=== PATIENT | female | born 1960 | race Caucasian/White ===

== ENCOUNTER 2016-05-28 11:00 | Emergency (ER) | payer BC ==
[2016-05-28 13:53] LABS: APPEARANCE CLEAR (CLEAR); BILIRUBIN NEGATIVE (NEGATIVE); COLOR YELLOW (YELLOW); GLUCOSE NEGATIVE (NEGATIVE); KETONE NEGATIVE (NEGATIVE); LEUKOCYTE ESTERASE TRACE (NEGATIVE); NITRITE NEGATIVE (NEGATIVE); PROTEIN NEGATIVE (NEGATIVE); UROBILINOGEN NORMAL (NORMAL)
[2016-05-28 13:55] LABS: BACTERIA FEW /hpf (NONE SEEN); RED CELLS - URINE OCC /hpf (0-5); WHITE CELLS - URINE 0-5 /hpf (0-5)
== END 2016-05-28 13:58 | disposition home or self-care (01) ==
LOC: D.ER 11:00
PROVIDERS: Emergency Medicine
DX: M54.5 Low back pain (principal); F17.200 Nicotine dependence, unspecified, uncomplicated

== ENCOUNTER → 2017-09-23 09:10 | Outpatient (CLI) | payer BC ==
[~2017-09-23 09:10] MED LIST: ATIVAN0.5 MG PO; FUROSEMIDE20 MG PO; POTASSIUM99 M1 PO
[2017-10-21 11:16] VITALS: BMI 17.4
== END | disposition home or self-care (01) ==
LOC: D.US 09-21 09:30
DX: R18.8 Other ascites (principal); K76.6 Portal hypertension

== ENCOUNTER 2017-10-21 09:34 | Day surgery (SDC) | payer BC ==
[2017-09-23 10:48] LABS: BASOPHILS 0.9 % (0-2); EOSINOPHILS 3.7 % (0-7); HEMATOCRIT 40.6 % (36.0-48.0); HEMOGLOBIN 13.6 g/dL (12-16); IMMATURE GRANULOCYTES 0.2 % (0-5); LYMPHOCYTES 23.8 % (15-50); MCHC 33.5 g/dL (31.0-37.0); MCV 104.4 fL (80.0-100.0); MEAN PLATELET VOLUME 9.8 fL (7.4-10.4); NEUTROPHILS 62.4 % (40-80); PLATELET COUNT 130 10x3/uL (130-400); RBC 3.89 10x6/uL (4.00-5.40); RDW 14.7 % (11.5-14.5); WBC 6.5 10x3/uL (4.8-10.8)
[2017-09-23 10:49] LABS: INR 1.03 (0.85-1.17); PROTIME 13.1 SECONDS (11.6-15.0)
[2017-09-23 10:54] LABS: ALBUMIN 3.8 g/dL (3.4-5.0); BILIRUBIN - DIRECT 0.18 mg/dL (0.00-0.30); BILIRUBIN - INDIRECT 0.58 mg/dL (0.00-1.00); BILIRUBIN - TOTAL 0.76 mg/dL (0.2-1.3); PROTEIN - SERUM 8.1 g/dL (6.4-8.2)
[~2017-10-21] VITALS: Ht 167.6 cm; Wt 49.1 kg
--- NOTE | ~2017-10-21 | OP ---
PATIENT NAME: RAMAKRISHNA MATHEW MEDICAL RECORD: [id number] :56 LOCATION:D.OPS ADMISSION DATE: SURGEON: JAMES SILVA MD DATE OF OPERATION: 10/21/2017 PROCEDURE: EGD with biopsy. REFERRING PHYSICIAN: Carlos Alvarez MD (Bill) INDICATIONS: Ms. Mathew is a delightful 57-year-old woman with history of cirrhosis secondary to alcohol, who presents for outpatient surveillance EGD. PREMEDICATIONS: Total IV anesthesia (cirrhosis), propofol 270 mg. INSTRUMENT: Olympus video gastroscope. PROCEDURE AND FINDINGS: After receiving informed consent, Ms. Mathew's posterior pharynx was anesthetized with Cetacaine spray. She was placed in left lateral decubitus position and sedated as per anesthesia. After achieving an adequate level of sedation, gastroscope was introduced per orally and advanced to the duodenum without difficulty. The esophageal mucosa was without erythema, ulcers, strictures, or masses. No varices were seen in the esophagus. Small hiatal hernia was present. Gastric mucosa was notable for cprv-qc-qdqlnpls diffuse erythema, most pronounced in antrum, and antral biopsies were obtained to rule out Helicobacter pylori. There was a small 0.3- to 0.5-cm sessile polyp in the antrum, which was biopsied. There were prominent thickened folds in the cardia, fundus, stomach, and gastric body. The mucosa in the proximal stomach had reticulated pattern, consistent with gastropathy of portal hypertension. Pylorus was patent and competent. Duodenal mucosa was without erythema or ulcers, appeared normal to the second portion. Gastroscope was then withdrawn. Ms. Mathew tolerated the procedure well. No immediate complications. ASSESSMENT: 1. Small hiatal hernia. 2. Prominent gastric folds. Cannot exclude underlying early gastric varices. 4. Gastropathy of portal hypertension. 5. Gastritis. 6. Antral or gastric polyp. RECOMMENDATIONS: 1. Followup histopathology. 2. Discontinue alcohol. 3. Surveillance EGD in one year. TRANSINT:[id number] Voice Confirmation ID: [id number] DOCUMENT ID: [id number] JAMES SILVA MD at 1808 CC: CARLOS ALVAREZ MD [id number] DICTATION DATE: 10/21/17 1243 PHLEBOTOMIST SUPERVISOR/INSTRUCTOR: 10/21/17 1310 [facility] 10/21/17 [facility] [address] [facility] [place] [address]
[2017-10-21 10:25] LABS: HEMATOCRIT 39.7 % (36.0-48.0); HEMOGLOBIN 13.9 g/dL (12-16); MCH 35.5 pg (26.0-34.0); MCV 101.3 fL (80.0-100.0); MEAN PLATELET VOLUME 8.9 fL (7.4-10.4); RBC 3.92 10x6/uL (4.00-5.40); RDW 14.2 % (11.5-14.5); WBC 5.6 10x3/uL (4.8-10.8)
[2017-10-21] MEDS ORDERED: POTASSIUM99 M1 PO (10:58)
[2017-10-21] MEDS ORDERED: FUROSEMIDE20 MG PO (10:59)
[2017-10-21] MEDS ORDERED: ATIVAN0.5 MG PO (11:00)
[2017-10-21 11:16] VITALS: BP 135/84; Ht 167.6 cm; Wt 49.1 kg
== END 2017-10-21 13:42 | disposition home or self-care (01) ==
LOC: D.OPS 09:34
PROVIDERS: Anesthesiology; Internal Medicine Gastroenterology
DX: K76.6 Portal hypertension (principal); K70.30 Alcoholic cirrhosis of liver without ascites; K31.89 Other diseases of stomach and duodenum; K44.9 Diaphragmatic hernia without obstruction or gangrene; K29.70 Gastritis, unspecified, without bleeding; K31.7 Polyp of stomach and duodenum; Z01.812 Encounter for preprocedural laboratory examination

== ENCOUNTER 2018-01-11 09:46 | Day surgery (SDC) | payer BC ==
[~2018-01-11] VITALS: Ht 167.6 cm; Wt 77.3 kg
--- NOTE | ~2018-01-11 | OP ---
PATIENT NAME: RAMAKRISHNA MATHEW MEDICAL RECORD: [id number] :56 LOCATION:D.OPS ADMISSION DATE: SURGEON: JAMES SILVA MD DATE OF OPERATION: 01/11/2018 PROCEDURE: Colonoscopy with polypectomy. REFERRING PHYSICIAN: Samuel Alvarez MD (Bill) INDICATIONS: Ms. Mathew is a delightful 57-year-old woman with history of portal hypertension, ascites, and alcohol-related liver disease. She has a history of colon polyps. Last colonoscopy was with Dr. Gerard Castaneda on August 2014 showing a tubular adenomatous colon polyp. She has a family history of colon cancer including her father, brother, and maternal grandmother. She presents for outpatient colonoscopy. PREMEDICATIONS: Total IV anesthesia (propofol 390 mg). INSTRUMENT: Olympus video colonoscope, pediatric. PROCEDURE AND FINDINGS: After receiving informed consent, Ms. Mathew was placed in left lateral decubitus position and sedated as per anesthesia. After achieving an adequate level of sedation, digital rectal exam was performed that showed few external hemorrhoidal tags. No fissure or fistulas. Normal sphincter tone. No palpable rectal masses. Colonoscope was introduced per rectally and advanced to the cecum. The cecum, IC valve, and appendiceal orifice were identified. Adjacent to the appendiceal orifice was a 0.3-cm sessile polyp, removed with biopsy forcep technique. At the splenic flexure was a diminutive 0.25-cm sessile polyp, removed with hot biopsy forcep technique. Retroflexion in the rectum showed grade I internal hemorrhoid. A good prep was present. Ms. Mathew tolerated the procedure well. No complications. Withdrawal time was 6 minutes. ASSESSMENT: 1. Small splenic flexure polyp, status post polypectomy. 2. Small cecal polyp, status post polypectomy. 3. Grade I internal hemorrhoid. RECOMMENDATIONS: 1. Followup histopathology. 2. Avoid aspirin, nonsteroidal anti-inflammatory drugs, and HANSEN-2 inhibitors for 14 days postpolypectomy. 3. High-fiber diet. 4. Surveillance colonoscopy in 3 years. TRANSINT:[id number] Voice Confirmation ID: [id number] DOCUMENT ID: [id number] OPERATIVE REPORT [id number] RAMAKRISHNA MATHEW JAMES SILVA MD at 8832 CC: SAMUEL ALVAREZ MD [id number] DICTATION DATE: 01/11/18 1624 WARD MAID: 01/11/18 2318 [facility] 01/11/18 [place] [id number] [place] [address]
[2018-01-11 10:22] LABS: HEMATOCRIT 37.2 % (36.0-48.0); HEMOGLOBIN 13.1 g/dL (12-16); MCH 38.8 pg (26.0-34.0); MCHC 35.2 g/dL (31.0-37.0); MCV 110.1 fL (80.0-100.0); MEAN PLATELET VOLUME 8.9 fL (7.4-10.4); RBC 3.38 10x6/uL (4.00-5.40); RDW 15.2 % (11.5-14.5); WBC 9.3 10x3/uL (4.8-10.8)
[2018-01-11 12:32] VITALS: BP 128/87; Ht 167.6 cm; Wt 77.3 kg
== END 2018-01-11 17:08 | disposition home or self-care (01) ==
LOC: D.OPS 09:46
PROVIDERS: Anesthesiology
DX: D12.0 Benign neoplasm of cecum (principal); D12.3 Benign neoplasm of transverse colon; Z86.010 Personal history of colon polyps; K64.0 First degree hemorrhoids; K64.4 Residual hemorrhoidal skin tags; K76.6 Portal hypertension; K70.9 Alcoholic liver disease, unspecified; Z01.812 Encounter for preprocedural laboratory examination

== ENCOUNTER → 2018-09-07 08:30 | Outpatient (CLI) | payer BC ==
[2018-01-11 12:32] VITALS: BMI 27.5
== END | disposition home or self-care (01) ==
LOC: D.MAMMO 08:30
PROVIDERS: ATTEND Family Medicine
DX: Z12.31 Encounter for screening mammogram for malignant neoplasm of breast (principal)

== ENCOUNTER 2019-01-24 14:54 | Inpatient (IN) | payer MEDICAID ==
[~2019-01-24] VITALS: Ht 167.6 cm; Wt 49.2 kg
[2019-01-24] VITALS (8 sets, daily range): BP systolic 89–122; BP diastolic 20–88; Ht 167.6 cm; Wt 49.2 kg
--- NOTE | 2019-01-24 15:23 | NUR ---
POSION CONTROL CALLED; SPOKE WITH ALF. ORDERS TO MONITOR, PT KEEP AWAKE AND IVF, PT STILL LETHARGIC AFTER CHARCOAL CONSUMED BUT WILL WAKE UP AND TALK TO ONE WHEN STIMULATED. PT HAS BEEN ONE ON ONE SINCE ARRIVAL.
[2019-01-24 15:46] LABS: BASOPHILS 1.2 % (0-2); EOSINOPHILS 2.3 % (0-7); HEMATOCRIT 38.5 % (36.0-48.0); HEMOGLOBIN 12.7 g/dL (12-16); IMMATURE GRANULOCYTES 0.2 % (0-5); LYMPHOCYTES 39.6 % (15-50); MCH 33.4 pg (26.0-34.0); MCV 101.3 fL (80.0-100.0); MEAN PLATELET VOLUME 9.4 fL (7.4-10.4); MONOCYTES 7.6 % (2-11); NEUTROPHILS 49.1 % (40-80); PLATELET COUNT 178 10x3/uL (130-400); RDW 14.2 % (11.5-14.5); WBC 6.5 10x3/uL (4.8-10.8)
[2019-01-24 15:56] LABS: CALC OSMOLALITY 279 mosm/kg (275-300); CHLORIDE - SERUM 107 mmol/L (98-107); CREATININE - SERUM 0.8 mg/dL (0.6-1.3); GLUCOSE 93 mg/dL (74-106); POTASSIUM - SERUM 3.3 mmol/L (3.5-5.1); SODIUM 142 mmol/L (136-145); UREA NITROGEN 5 mg/dL (7-18); eGFR NON AFRICAN AMERICAN 77 mL/min (90-120)
[2019-01-24 16:02] LABS: ALBUMIN 3.4 g/dL (3.4-5.0); ALKALINE PHOSPHATASE 190 U/L (46-116); ALT (SGPT) 30 U/L (10-68); BILIRUBIN - TOTAL 0.37 mg/dL (0.2-1.3); MAGNESIUM - SERUM 1.9 mg/dL (1.8-2.4); PROTEIN - SERUM 7.4 g/dL (6.4-8.2)
--- NOTE | 2019-01-24 17:05 | MORECARE ---
CASE MANAGEMENT DISCHARGE SUMMARY PATIENT: RAMAKRISHNA MATHEW UNIT: [id number] ADM DATE: 01/24/19 AGE: 58 : 56 SEX: F ROOM/BED: D.2314 AUTHOR: LARISSA FLOWERS PHYSICIAN: REFERRING PHYSICIAN: CARLOS ALVAREZ MD DATE OF SERVICE: 01/24/19 Discharge Plan Patient Name: RAMAKRIHSNA MATHEW Facility: [facility]:[place] : 1960 Planned Disposition: Inpatient Psych Facility Anticipated Discharge Date: 01/25/19 Discharge Date: Expected LOS: 1 Initial Reviewer: [email or web address] Initial Review Date: 01/24/2019 Generated: 01/24/19 6:05 pm DCPIA - Discharge Planning Initial Assessment Updated by [email or web address]: Betty Bernal on 01/24/19 5:01 pm * Is the patient Alert and Oriented? Yes * PCP Dr. Alvarez * Pharmacy [facility] * Preadmission Environment Home Alone * ADLs Independent * Other Equipment foot brace - has foot drop. * List name and contact numbers for known caregivers / representatives who currently or will assist patient after discharge: Bridger torres - [phone] * Verbal permission to speak to the caregivers and representatives has been obtained from the patient. Yes * Community resources currently utilized None * Additional services required to return to the preadmission environment? Yes * Can the patient safely return to the preadmission environment? No * Has this patient been hospitalized within the prior 30 days at any hospital? No Patient Name: RAMAKRISHNA MATHEW Page [id number] at 1705 All edits/amendments must be made on the electronic document DICTATION DATE: 01/24/191704 MEDICAL VOUCHER CLERK: LEI 01/24/191704 RPT#: [id number] [place] DATE: STATUS: ADM IN [facility] [address] [place] [address] END OF REPORT
--- NOTE | 2019-01-24 17:15 | MORECARE ---
CASE MANAGEMENT DISCHARGE SUMMARY PATIENT: RAMAKRISHNA MATHEW UNIT: [id number] ADM DATE: 01/24/19 AGE: 58 : 56 SEX: F ROOM/BED: D.2314 AUTHOR: KRISTIE,DOC PHYSICIAN: REFERRING PHYSICIAN: CARLOS ALVAREZ MD DATE OF SERVICE: 01/24/19 Discharge Plan Patient Name: RAMAKRISHNA MATHEW Facility: [facility]:[place] : 1960 Planned Disposition: Inpatient Psych Facility Anticipated Discharge Date: 01/25/19 Discharge Date: Expected LOS: 1 Initial Reviewer: [email or web address] Initial Review Date: 01/24/2019 Generated: 01/24/19 6:14 pm DCP- Discharge Planning Updated by [email or web address]: Betty Bernal on 01/24/19 4:[address] DC PLAN: Inpatient psych facility. ANTICIPATED DC NEEDS: Psych placement for attempted SI. CM met with patient who was unable to answer questions r/t poor response. Patients son in room, Bridger Rodriguez who complete initial dc planning assessment. CM educated Bridger on the CM role and verbal consent given by him to complete assessment. CM verified patient's address, phone number, and emergency contact phone numbers. Patient lives at home alone. He was concerned about where his mother would go at dc. Cm assured him that since she attempted suicide she would be placed in a facility to help her. He stated he figured that but he wanted re-assurance. Informed him that patient's upper caser tomorrow will be Darcy. CM will continue to follow and will assist as needed with dc plans/needs. Betty Bernal RN, [facility] DCPIA - Discharge Planning Initial Assessment Updated by [email or web address]: Betty Bernal on 01/24/19 5:01 pm * Is the patient Alert and Oriented? Yes * PCP Dr. Alvarez * Pharmacy [facility] on [facility] * Preadmission Environment Home Alone * ADLs Independent * Other Equipment foot brace - has foot drop. * List name and contact numbers for known caregivers / representatives who currently or will assist patient after discharge: Bridger Rodriguez - son - [phone] * Verbal permission to speak to the caregivers and representatives has been obtained from the patient. Yes * Community resources currently utilized None * Additional services required to return to the preadmission environment? Yes * Can the patient safely return to the preadmission environment? No * Has this patient been hospitalized within the prior 30 days at any hospital? No Last DP export: 01/24/19 4:05 Patient Name: RAMAKRISHNA MATHEW Page [id number] at 1715 All edits/amendments must be made on the electronic document DICTATION DATE: 01/24/191713 HUMAN RESOURCES MGR: LEI 01/24/191713 RPT#: [id number] DC DATE: STATUS: ADM IN [facility] [address] [place] [address] END OF REPORT
--- NOTE | 2019-01-24 18:09 | NUR ---
PATIENT IS STILL TOO SEDATED TO DO SUICIDAL ASSESSMENT. ICU NURSE IS TRYING TO DO HER ASSESSMENT AND PATIENT IS VERY DROWSEY AND DOZING OFF TO SLEEP. WILL HAVE TO BE REASSESSED LATER.
--- NOTE | 2019-01-24 18:12 | NUR ---
NS STOPPED WITH PT TRANSFERED TO ICU 171
--- NOTE | 2019-01-24 18:20 | NUR ---
dr ramsay at bedside. patient admitted to taking 20 pills of ativan.
[2019-01-24] MEDS ORDERED: REMERON15 MG PO (18:24)
[2019-01-24] MEDS ORDERED: CYMBALTA60 MG PO (18:24)
[2019-01-24] MEDS ORDERED: NEURONTIN800 MG PO (18:25)
--- NOTE | 2019-01-24 19:00 | NUR ---
ASSESSMENT COMPLETED. HYPOTENSIVE AND LETHARGIC. WAKES TO STIMULI. DENIES ANY NEEDS AT THIS TIME. CALL LIGHT IN REACH. PATIENT HAS SITTER WITH HER. PATIENT IS ALSO CONFUSED.
--- NOTE | 2019-01-24 21:00 | NUR ---
LAYING IN BED, EASILY WAKES NOW TO NAME. C/O L KNEE PAIN AND WANTING NARCOTICS. PATIENT TRIED TO GET UP OOB WITHOUT ASSISTANCE. LEFT LEG WEAK. STATES SHE FELL AT HER SON'S HOUSE AT [facility] LAST MONTH. ATTEMPTED TO RE-ORIENT WITHOUT SUCCESS. PATIENT STATES SHE DOES NOT THINK SHE TRIED TO KILL HERSELF. PATIENT DRINKING LIQUIDS WITHOUT DIFFICULTY. CALL LIGHT IN REACH
--- NOTE | 2019-01-24 23:00 | NUR ---
RE-ASSESSMENT COMPLETED. NO CHANGES SINCE LAST ASSESSMENT. 3 EPISODES OF BLACK DIARRHEA. UNABLE TO OBTAIN URINE D/T ALSO HAS DIARRHEA EACH TIME IN BSC. PT IS ASKING FOR ASSISTANCE, NOT GETTING UP ON HER OWN ANYMORE. PATIENT IS REQUESTING MEDICINE TO HELP HER SLEEP AND STATES SHE HAS TO HAVE SOMETHING TO SLEEP. DENIES ANY PAIN TO L KNEE AT THIS TIME
[2019-01-25] VITALS (20 sets, daily range): BP systolic 114–184; BP diastolic 67–113
--- NOTE | 2019-01-25 01:00 | NUR ---
LAYING IN BED WITH EYES CLOSED, EASILY WAKES TO NAME. CALL LIGHT IN REACH. VSS. DENIES ANY PAIN OR NEEDS AT THIS TIME.
--- NOTE | 2019-01-25 03:00 | NUR ---
RE-ASSESSMENT COMPLETED. NO CHANGES SINCE LAST ASSESSMENT. VSS. CALL LIGHT IN REACH. 1:1 SITTER. ANOTHER LOOSE BM, INCONTINENT. COMPLETE BED CHANGE COMPLETED
--- NOTE | 2019-01-25 05:03 | NUR ---
EYES CLOSED, EASILY WAKES. VSS. CALL LIGHT IN REACH. 1:1 SITTER.
[2019-01-25 05:12] LABS: BASOPHILS 1.1 % (0-2); HEMOGLOBIN 11.1 g/dL (12-16); IMMATURE GRANULOCYTES 0.2 % (0-5); LYMPHOCYTES 35.8 % (15-50); MCH 32.7 pg (26.0-34.0); MCHC 31.7 g/dL (31.0-37.0); MCV 103.2 fL (80.0-100.0); MEAN PLATELET VOLUME 9.5 fL (7.4-10.4); MONOCYTES 13.5 % (2-11); NEUTROPHILS 45.4 % (40-80); PLATELET COUNT 168 10x3/uL (130-400); RBC 3.39 10x6/uL (4.00-5.40); RDW 14.6 % (11.5-14.5); WBC 6.3 10x3/uL (4.8-10.8)
[2019-01-25 05:38] LABS: ALBUMIN 2.9 g/dL (3.4-5.0); ALKALINE PHOSPHATASE 156 U/L (46-116); ALT (SGPT) 23 U/L (10-68); BILIRUBIN - TOTAL 0.38 mg/dL (0.2-1.3); CALC OSMOLALITY 287 mosm/kg (275-300); CALCIUM 7.7 mg/dL (8.5-10.1); CARBON DIOXIDE 24.4 mmol/L (21.0-32.0); CHLORIDE - SERUM 113 mmol/L (98-107); CREATININE - SERUM 0.6 mg/dL (0.6-1.3); GLUCOSE 97 mg/dL (74-106); POTASSIUM - SERUM 3.9 mmol/L (3.5-5.1); PROTEIN - SERUM 6.2 g/dL (6.4-8.2); SODIUM 146 mmol/L (136-145); UREA NITROGEN 4 mg/dL (7-18); eGFR NON AFRICAN AMERICAN > 90 mL/min (90-120)
--- NOTE | 2019-01-25 07:00 | NUR ---
REPORT RECIEVED, SHIFT ASSESSMENT COMPLETE, PT IS ALERT AND ORIENTED, ON RA WITH 97% O2 SAT. ALL PPP, VSS, CALL LIGHT IN REACH
--- NOTE | 2019-01-25 09:00 | NUR ---
UPTO BSC, 400 UOP NOTED
--- NOTE | 2019-01-25 09:11 | HP ---
PATIENT: RAMAKRISHNA MATHEW MEDICAL RECORD: [id number] ACCOUNT: [id number] LOCATION:[facility] D2312 : 56 ADMISSION DATE: 01/24/19 PCP: CARLOS ALVAREZ MD HISTORY AND PHYSICAL EXAMINATION DATE OF ADMISSION: 01/24/2019 CHIEF COMPLAINT: Ativan overdose. HISTORY OF PRESENT ILLNESS: A 58-year-old female brought in via EMS reportedly took approximately 30 lorazepam 0.5 mg in an attempt to kill herself. In the ER, it was reported that she wanted to end her life. When I talked to her in the ICU, I asked her if she wanted to end her life and she said "call for help." She is admitted to the ICU for close monitoring for intentional benzodiazepine overdose. PAST MEDICAL AND SURGICAL HISTORY: In the last few months, she presented to my office, admittedly depressed and drinking too much. She spent time in [facility] in either late October or early November and was reportedly diagnosed with post-traumatic stress disorder and depression. She has been going to [facility] in [facility]. Since being discharged from [facility], she was reportedly on duloxetine, mirtazapine, gabapentin, Lasix, and potassium. She has been on lorazepam prior to the hospitalization; however, she still had a refill left of lorazepam 0.5, #60, to take twice a day. She got that filled on 12/12/2018. She also has a past history of hypertension, high cholesterol, and dropped foot. PAST SURGICAL HISTORY: Laparoscopic cholecystectomy. ALLERGIES: No known drug allergies. HABITS: She smokes. She has continued to drink. Denies any drug use. HOME MEDICATIONS: Duloxetine 60 mg every morning, mirtazapine 15 mg at bedtime, gabapentin 800 mg t.i.d., multivitamin once a day, Lasix 20 mg once a day p.r.n. edema and K-Dur 20 mEq 1 p.o. every day on days she takes Lasix. FAMILY HISTORY: Noncontributory. SOCIAL HISTORY: , has been working at [employer], I am not sure if she is still there or not. REVIEW OF SYSTEMS: GENERAL: No major weight changes. HEENT: No particular sinus or allergy problems. RESPIRATORY: No history of asthma or emphysema. CARDIAC: No history of chest pain. GASTROINTESTINAL: No diarrhea, constipation, or heartburn. GENITOURINARY: No significant problems there. MUSCULOSKELETAL: No significant problems. NEUROLOGICAL: She has footdrop. PSYCHIATRIC: Posttraumatic stress disorder and depression. PHYSICAL EXAMINATION: VITAL SIGNS: Temperature 98.8, pulse 97, respirations 12, blood pressure HISTORY AND PHYSICAL [id number] RAMAKRISHNA MATHEW 104/70, O2 sat 100%. GENERAL: She is easily awakened. She is confused. HEENT: Unremarkable. NECK: Supple. HEART: Regular rate and rhythm without murmur. LUNGS: Clear. ABDOMEN: Soft. EXTREMITIES: No edema. NEUROLOGIC: Again, she seems confused, this could be the alcohol or lorazepam. LABORATORY DATA: CBC is normal. Basic metabolic panel is okay except potassium a little low at 3.3, magnesium 1.9, alkaline phosphatase 190. Other liver functions are normal. Acetaminophen level 0.0. Alcohol level 231 (normal is less than 10). ASSESSMENT: 1. Lorazepam overdose. 2. Alcohol abuse. PLAN: Close monitoring in the ICU, consult psych in the morning. Other tests and procedures as warranted. TRANSINT:[id number] Voice Confirmation ID: [id number] DOCUMENT ID: [id number] CARLOS ALVAREZ MD at 0911 CC: [id number] DICTATION DATE: 01/25/19 0059 GROUNDSKEEPING MAINTENANCE WORKER: 01/25/19 0148 ADM IN [facility] [address] [place] [address]
--- NOTE | 2019-01-25 11:00 | NUR ---
REASSESSMENT COMPLETE, NO CHANGES NOTED, WILL CON'T TO MONITOR
--- NOTE | 2019-01-25 13:15 | NUR ---
UPTO BSC, 250 UOP
--- NOTE | 2019-01-25 15:00 | NUR ---
PT RESTING AT THIS TIME, DENIES ANY NEEDS OR WANTS, VSS, CALL LIGHT IN REACH
--- NOTE | 2019-01-25 16:00 | NUR ---
DR. LEDBETTER AT BEDSIDE, UPDATE GIVEN, SPOKE AT LENGTH WITH PT AT THIS TIME
--- NOTE | 2019-01-25 16:27 | NUR ---
UPDATE GIVEN TO SON OVER PHONE,
--- NOTE | 2019-01-25 16:54 | NUR ---
PATIENT DENIES ANY THOUGHTS OF SUICIDE SINCE LADT ASKED. HER SCREENING IS COMPLETED. CONTINUE TO HAVE A SITTER AT BEDSIDE TO MONITOR HER.
--- NOTE | 2019-01-25 17:59 | MORECARE ---
CASE MANAGEMENT DISCHARGE SUMMARY PATIENT: RAMAKRISHNA MATHEW UNIT: [id number] ADM DATE: 01/24/19 AGE: 58 : 56 SEX: F ROOM/BED: D.2312 AUTHOR: KRISTIE,DOC PHYSICIAN: REFERRING PHYSICIAN: CARLOS ALVAREZ MD DATE OF SERVICE: 01/25/19 Discharge Plan Patient Name: RAMAKRISHNA MATHEW Facility: [facility]:[place] : 1960 Planned Disposition: Inpatient Psych Facility Anticipated Discharge Date: 01/25/19 Discharge Date: Expected LOS: 1 Initial Reviewer: [email or web address] Initial Review Date: 01/24/2019 Generated: 01/25/19 6:59 pm DCP- Discharge Planning Updated by [email or web address]: Betty Bernal on 01/24/19 4:[address] DC PLAN: Inpatient psych facility. ANTICIPATED DC NEEDS: Psych placement for attempted SI. CM met with patient who was unable to answer questions r/t poor response. Patients son in room, Bridger Rodriguez who complete initial dc planning assessment. CM educated Bridger on the CM role and verbal consent given by him to complete assessment. CM verified patient's address, phone number, and emergency contact phone numbers. Patient lives at home alone. He was concerned about where his mother would go at dc. Cm assured him that since she attempted suicide she would be placed in a facility to help her. He stated he figured that but he wanted re-assurance. Informed him that patient's nurse case manager tomorrow will be Darcy. CM will continue to follow and will assist as needed with dc plans/needs. Betty Bernal RN, [facility] DCPIA - Discharge Planning Initial Assessment Updated by [email or web address]: Betty Bernal on 01/24/19 5:01 pm * Is the patient Alert and Oriented? Yes * PCP Dr. Alvarez * Pharmacy [facility] on [facility] * Preadmission Environment Home Alone * ADLs Independent * Other Equipment foot brace - has foot drop. * List name and contact numbers for known caregivers / representatives who currently or will assist patient after discharge: Bridger Rodriguez - son - [phone] * Verbal permission to speak to the caregivers and representatives has been obtained from the patient. Yes * Community resources currently utilized None * Additional services required to return to the preadmission environment? Yes * Can the patient safely return to the preadmission environment? No * Has this patient been hospitalized within the prior 30 days at any hospital? No External Providers External Provider: [facility] Next Contact Date: Service Request Date: Service Type: Resolution: Reviewer: Comments: Last DP export: 01/24/19 4:15 Patient Name: RAMAKRISHNA MATHEW Page [phone] at 1759 All edits/amendments must be made on the electronic document DICTATION DATE: 01/25/191758 SKIAGRAPHER: LEI 01/25/191758 RPT#: [id number] [place] DATE: STATUS: ADM IN [facility] [address] [place] [address] END OF REPORT
--- NOTE | 2019-01-25 18:22 | NUR ---
CONSULT CALLED TO DR. CARDOZA, NO NEW ORDERS GIVEN
--- NOTE | 2019-01-25 19:00 | NUR ---
ASSESSMENT COMPLETED. BP 184/113 THEN AFTER A FEW MINUTES RECHECKED AND WAS 177/108. PAGED DR. ALVAREZ. C/O RINGING IN THE EARS. CONT WITH 1:1 SITTER
--- NOTE | 2019-01-25 20:00 | NUR ---
NEW ORDER FROM DR. ALVAREZ FOR CLONIDINE 0.1MG NOW AND THEN Q 6 HOURS PRN SBP >160 AND START NORVASC 5 MG Q DAY IN THE MORNING. READ BACK AND VERIFIED.
--- NOTE | 2019-01-25 21:00 | NUR ---
BP STARTING TO COME DOWN. DENIES ANY NEEDS. VSS
--- NOTE | 2019-01-25 21:08 | MORECARE ---
CASE MANAGEMENT DISCHARGE SUMMARY PATIENT: RAMAKRISHNA MATHEW UNIT: [id number] ADM DATE: 01/24/19 AGE: 58 : 56 SEX: F ROOM/BED: D.2312 AUTHOR: KRISTIE,DOC PHYSICIAN: REFERRING PHYSICIAN: CARLOS ALVAREZ MD DATE OF SERVICE: 01/25/19 Discharge Plan Patient Name: RAMAKRISHNA MATHEW Facility: [facility]:[place] : 1960 Planned Disposition: Inpatient Psych Facility Anticipated Discharge Date: 01/25/19 Discharge Date: Expected LOS: 1 Initial Reviewer: [email or web address] Initial Review Date: 01/24/2019 Generated: 01/25/19 10:08 pm Comments DCP- Discharge Planning Updated by [email or web address]: Darcy Talbert on 01/25/19 8:[address] CM called transfer center and faxed records for psychiatric placement. Awaiting for placement. CM will continue to follow and assist as needed with discharge planning / needs DCP- Discharge Planning Updated by [email or web address]: Betty Bernal on 01/24/19 4:[address] DC PLAN: Inpatient psych facility. ANTICIPATED DC NEEDS: Psych placement for attempted SI. CM met with patient who was unable to answer questions r/t poor response. Patients son in room, Bridger Rodriguez who complete initial dc planning assessment. CM educated Bridger on the CM role and verbal consent given by him to complete assessment. CM verified patient's address, phone number, and emergency contact phone numbers. Patient lives at home alone. He was concerned about where his mother would go at dc. Cm assured him that since she attempted suicide she would be placed in a facility to help her. He stated he figured that but he wanted re-assurance. Informed him that patient's window caser tomorrow will be Darcy. CM will continue to follow and will assist as needed with dc plans/needs. Betty Bernal RN, [facility] DCPIA - Discharge Planning Initial Assessment Updated by [email or web address]: Betty Bernal on 01/24/19 5:01 pm * Is the patient Alert and Oriented? Yes * PCP Dr. Alvarez * [facility] * Preadmission Environment Home Alone * ADLs Independent * Other Equipment foot brace - has foot drop. * List name and contact numbers for known caregivers / representatives who currently or will assist patient after discharge: Bridger torres - [phone] * Verbal permission to speak to the caregivers and representatives has been obtained from the patient. Yes * Community resources currently utilized None * Additional services required to return to the preadmission environment? Yes * Can the patient safely return to the preadmission environment? No * Has this patient been hospitalized within the prior 30 days at any hospital? No Last DP export: 01/25/19 4:59 Patient Name: RAMAKRISHNA MATHEW Page [phone] at 2108 All edits/amendments must be made on the electronic document DICTATION DATE: 01/25/192107 HEMMER CHAINSTITCH: LEI 01/25/192107 RPT#: [id number] DC DATE: STATUS: ADM IN [facility] [address] [place] [address] END OF REPORT
--- NOTE | 2019-01-25 23:00 | NUR ---
RE-ASSESSMENT COMPLETED. NO CHANGES SINCE LAST ASSESSMENT
[2019-01-26] VITALS (9 sets, daily range): BP systolic 123–166; BP diastolic 79–110
--- NOTE | 2019-01-26 | NUR ---
JUVENTINO WITH [facility] CALLED FOR H&P, FAXED COPY AND SHE CALLED BACK AND SAID THEIR DOCTOR DENIED HER D/T DUAL DX. STATES THAT THEIR DOCTOR RECOMMENDS TO GO BACK TO [facility] SINCE SHE HAS BEEN THERE BEFORE.
--- NOTE | 2019-01-26 01:00 | NUR ---
COLLECTED UA AND UDS, SENT TO LAB. BP COMING DOWN. DENIES ANY NEEDS
[2019-01-26 01:19] LABS: APPEARANCE CLEAR (CLEAR); BILIRUBIN NEGATIVE (NEGATIVE); COLOR YELLOW (YELLOW); GLUCOSE NEGATIVE (NEGATIVE); KETONE NEGATIVE (NEGATIVE); NITRITE NEGATIVE (NEGATIVE); PROTEIN NEGATIVE (NEGATIVE); UROBILINOGEN NORMAL (NORMAL)
[2019-01-26 01:27] LABS: UDS - AMPHET NEGATIVE QUAL (NEGATIVE); UDS - BARB NEGATIVE QUAL (NEGATIVE); UDS - BENZO NEGATIVE QUAL (NEGATIVE); UDS - COCAINE NEGATIVE QUAL (NEGATIVE); UDS - OPIATE NEGATIVE QUAL (NEGATIVE); UDS - PCP NEGATIVE QUAL (NEGATIVE); UDS - THC NEGATIVE QUAL (NEGATIVE)
--- NOTE | 2019-01-26 02:37 | NUR ---
SBP STILL ELEVATED- 166/110. GIVEN ANOTHER CLONIDINE PER ORDERS
--- NOTE | 2019-01-26 03:44 | NUR ---
BP AT THIS TIME 135/85. APPROX 1 HOUR AFTER CLONIDINE
--- NOTE | 2019-01-26 05:00 | NUR ---
VSS. LAYING IN BED, EASILY WAKES. 1:1 SITTER
--- NOTE | 2019-01-26 07:17 | NUR ---
REPORT RECIEVED, SHIFT ASSESSMENT COMPLETE, PT IS ALERT AND ORIENTED, ON RA WITH 97% O2 SAT. ALL PPP, VSS, CALL LIGHT IN REACH
--- NOTE | 2019-01-26 09:00 | NUR ---
PT RESTING AT THIS TIME, NO NEEDS NOTED, WILL CON'T TO MONITOR
--- NOTE | 2019-01-26 11:00 | NUR ---
PT AWAKE WATCHING TV AT THIS TIME, DENIES ANY NEEDS OR WANTS
--- NOTE | 2019-01-26 13:00 | NUR ---
PT LYING AWAKE IN BED, NO NEEDS NOTED
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
--- NOTE | 2019-01-26 14:37 | MORECARE ---
CASE MANAGEMENT DISCHARGE SUMMARY PATIENT: RAMAKRISHNA MATHEW UNIT: [id number] ADM DATE: 01/24/19 AGE: 58 : 56 SEX: F ROOM/BED: D.2312 AUTHOR: KRISTIE,DOC PHYSICIAN: REFERRING PHYSICIAN: CARLOS ALVAREZ MD DATE OF SERVICE: 01/26/19 Discharge Plan Patient Name: RAMAKRISHNA MATHEW Facility: [facility]:[place] : 1960 Planned Disposition: Inpatient Psych Facility Anticipated Discharge Date: 01/25/19 Discharge Date: Expected LOS: 1 Initial Reviewer: [email or web address] Initial Review Date: 01/24/2019 Generated: 01/26/19 3:37 pm Comments DCP- Discharge Planning Updated by [email or web address]: Darcy Talbert on 01/25/19 8:[address] CM called transfer center and faxed records for psychiatric placement. Awaiting for placement. CM will continue to follow and assist as needed with discharge planning / needs DCP- Discharge Planning Updated by [email or web address]: Betty Bernal on 01/24/19 4:[address] DC PLAN: Inpatient psych facility. ANTICIPATED DC NEEDS: Psych placement for attempted SI. CM met with patient who was unable to answer questions r/t poor response. Patients son in room, Bridger Rodriguez who complete initial dc planning assessment. CM educated Bridger on the CM role and verbal consent given by him to complete assessment. CM verified patient's address, phone number, and emergency contact phone numbers. Patient lives at home alone. He was concerned about where his mother would go at dc. Cm assured him that since she attempted suicide she would be placed in a facility to help her. He stated he figured that but he wanted re-assurance. Informed him that patient's rn field case manager tomorrow will be Darcy. CM will continue to follow and will assist as needed with dc plans/needs. Betty Bernal RN, [facility] DCPIA - Discharge Planning Initial Assessment Updated by [email or web address]: Betty Bernal on 01/24/19 5:01 pm * Is the patient Alert and Oriented? Yes * PCP Dr. Alvarez * Pharmacy [facility] [address] * Preadmission Environment Home Alone * ADLs Independent * Other Equipment foot brace - has foot drop. * List name and contact numbers for known caregivers / representatives who currently or will assist patient after discharge: Bridger torres - [phone] * Verbal permission to speak to the caregivers and representatives has been obtained from the patient. Yes * Community resources currently utilized None * Additional services required to return to the preadmission environment? Yes * Can the patient safely return to the preadmission environment? No * Has this patient been hospitalized within the prior 30 days at any hospital? No External Providers External Provider: OTHER-OTHER Next Contact Date: Service Request Date: Service Type: Resolution: Reviewer: Comments: Last DP export: 01/25/19 8:08 Patient Name: RAMAKRISHNA MATHEW Page [phone] at 1437 All edits/amendments must be made on the electronic document DICTATION DATE: 01/26/191436 CONVERSION DEVELOPER: LEI 01/26/191436 RPT#: [id number] ME DATE: STATUS: ADM IN [facility] [address] [place] [address] END OF REPORT
--- NOTE | 2019-01-26 15:00 | NUR ---
SITTER AT BEDSIDE, NO NEEDS NOTED, WILL CON'T TO MONITOR
--- NOTE | 2019-01-26 17:15 | NUR ---
UPTO BSC, UOP NOTED
--- NOTE | 2019-01-26 19:30 | NUR ---
PT A/OX4, LUNGS CLEAR, KNEE IMMOBILIZER PLACED TO LEFT LEG, PT WATCHING TV WITH NO C/O, WILL CONT TO MONITOR
--- NOTE | 2019-01-26 19:50 | MORECARE ---
CASE MANAGEMENT DISCHARGE SUMMARY PATIENT: RAMAKRISHNA MATHEW UNIT: [id number] ADM DATE: 01/24/19 AGE: 58 : 56 SEX: F ROOM/BED: D.2312 AUTHOR: KRISTIE,DOC PHYSICIAN: REFERRING PHYSICIAN: CARLOS ALVAREZ MD DATE OF SERVICE: 01/26/19 Discharge Plan Patient Name: RAMAKRISHNA MATHEW Facility: [facility]:[place] : 1960 Planned Disposition: Inpatient Psych Facility Anticipated Discharge Date: 01/25/19 Discharge Date: Expected LOS: 1 Initial Reviewer: [email or web address] Initial Review Date: 01/24/2019 Generated: 01/26/19 8:50 pm Comments DCP- Discharge Planning Updated by [email or web address]: Darcy Talbert on 01/26/19 6:[address] CM contacted transfer center. Patient has been denied from several facilities some are d/t no insurance and with Medicaid pending. CM contacted [facility] requesting assistance in placement. CM spoke with [facility] [phone] fax [phone]. and faxed records to transfer center updated labs and urine. CM explained to transfer center and nursing staff that [facility] had approved 3 days inpatient psych. on indigent care contract and for accepting facility to contact [facility] [phone]. CM will continue to follow and assist as needed with discharge planning / needs. DCP- Discharge Planning Updated by [id number]: Darcy Talbert on 01/25/19 8:[address] CM called transfer center and faxed records for psychiatric placement. Awaiting for placement. CM will continue to follow and assist as needed with discharge planning / needs DCP- Discharge Planning Updated by [email or web address]: Betty Bernal on 01/24/19 4:[address] DC PLAN: Inpatient psych facility. ANTICIPATED DC NEEDS: Psych placement for attempted SI. CM met with patient who was unable to answer questions r/t poor response. Patients son in room, Bridger Rodriguez who complete initial dc planning assessment. CM educated Bridger on the CM role and verbal consent given by him to complete assessment. CM verified patient's address, phone number, and emergency contact phone numbers. Patient lives at home alone. He was concerned about where his mother would go at de. Cm assured him that since she attempted suicide she would be placed in a facility to help her. He stated he figured that but he wanted re-assurance. Informed him that patient's correctional case manager tomorrow will be Darcy. CM will continue to follow and will assist as needed with dc plans/needs. Betty Bernal RN, [facility] DCPIA - Discharge Planning Initial Assessment Updated by [email or web address]: Betty Bernal on 01/24/19 5:01 pm * Is the patient Alert and Oriented? Yes * PCP Dr. Alvarez * Pharmacy [facility] on [address] * Preadmission Environment Home Alone * ADLs Independent * Other Equipment foot brace - has foot drop. * List name and contact numbers for known caregivers / representatives who currently or will assist patient after discharge: Bridger torres - [phone] * Verbal permission to speak to the caregivers and representatives has been obtained from the patient. Yes * Community resources currently utilized None * Additional services required to return to the preadmission environment? Yes * Can the patient safely return to the preadmission environment? No * Has this patient been hospitalized within the prior 30 days at any hospital? No Last DP export: 01/26/19 1:37 Patient Name: RAMAKRISHNA MATHEW Page [phone] at 1950 All edits/amendments must be made on the electronic document DICTATION DATE: 01/26/191949 [employer]: LEI 01/26/191949 RPT#: [id number] DC DATE: STATUS: ADM IN [facility] [address] [place] [address] END OF REPORT
--- NOTE | 2019-01-26 21:00 | NUR ---
PT REMAINS AWAKE, WATCHING TV WITH NO C/O, SITTER PRESENT
--- NOTE | 2019-01-26 23:09 | NUR ---
PT AWAKE, TALKING WITH SITTER, NO CHANGES NOTED
[2019-01-27] VITALS: BP 127/83
--- NOTE | 2019-01-27 01:00 | NUR ---
PT RESTING QUIETLY WITH EYES CLOSED
--- NOTE | 2019-01-27 02:30 | NUR ---
PT SIGNED CONSENT FOR TRANSFER, NOTIFIED PT SON OF TRANSFER SOON AMBULANCE IS AVAILABLE
--- NOTE | 2019-01-27 03:17 | NUR ---
PT DISCHARGED VIA STRETCHER TO EMS FOR TRANSPORT TO [facility]
--- NOTE | 2019-01-27 15:58 | MORECARE ---
CASE MANAGEMENT DISCHARGE SUMMARY PATIENT: RAMAKRISHNA MATHEW UNIT: [id number] ADM DATE: 01/24/19 AGE: 58 : 56 SEX: F ROOM/BED: D.2312 AUTHOR: KRISTIE,DOC PHYSICIAN: REFERRING PHYSICIAN: CARLOS ALVAREZ MD DATE OF SERVICE: 01/27/19 Discharge Plan Patient Name: RAMAKRISHNA MATHEW Facility: [facility]:[place] : 1960 Planned Disposition: Inpatient Psych Facility Anticipated Discharge Date: 01/25/19 Discharge Date: 01/27/2019 Expected LOS: 1 Initial Reviewer: [email or web address] Initial Review Date: 01/24/2019 Generated: 01/27/19 4:58 pm Comments DCP- Discharge Planning Updated by [email or web address]: Darcy Talbert on 01/26/19 6:[address] CM contacted transfer center. Patient has been denied from several facilities some are d/t no insurance and with Medicaid pending. CM contacted [facility] requesting assistance in placement. CM spoke with [facility] [phone] fax [phone]. and faxed records to transfer center updated labs and urine. CM explained to transfer center and nursing staff that [facility] had approved 3 days inpatient psych. on indigent care contract and for accepting facility to contact [facility] [phone]. CM will continue to follow and assist as needed with discharge planning / needs. DCP- Discharge Planning Updated by [email or web address]: Darcy Talbert on 01/25/19 8:[address] CM called transfer center and faxed records for psychiatric placement. Awaiting for placement. CM will continue to follow and assist as needed with discharge planning / needs DCP- Discharge Planning Updated by [email or web address]: Betty Bernal on 01/24/19 4:[address] DC PLAN: Inpatient psych facility. ANTICIPATED DC NEEDS: Psych placement for attempted SI. CM met with patient who was unable to answer questions r/t poor response. Patients son in room, Bridger Rodriguez who complete initial dc planning assessment. CM educated Bridger on the CM role and verbal consent given by him to complete assessment. CM verified patient's address, phone number, and emergency contact phone numbers. Patient lives at home alone. He was concerned about where his mother would go at [place]. Cm assured him that since she attempted suicide she would be placed in a facility to help her. He stated he figured that but he wanted re-assurance. Informed him that patient's foster care case manager tomorrow will be Darcy. CM will continue to follow and will assist as needed with dc plans/needs. Betty Bernal RN, [facility] DCPIA - Discharge Planning Initial Assessment Updated by [email or web address]: Betty Bernal on 01/24/19 5:01 pm * Is the patient Alert and Oriented? Yes * PCP Dr. Alvarez * Pharmacy [facility] on [address] * Preadmission Environment Home Alone * ADLs Independent * Other Equipment foot brace - has foot drop. * List name and contact numbers for known caregivers / representatives who currently or will assist patient after discharge: Bridger torres - [phone] * Verbal permission to speak to the caregivers and representatives has been obtained from the patient. Yes * Community resources currently utilized None * Additional services required to return to the preadmission environment? Yes * Can the patient safely return to the preadmission environment? No * Has this patient been hospitalized within the prior 30 days at any hospital? No Last DP export: 01/26/19 6:50 Patient Name: RAMAKRISHNA MATHEW Page [phone] at 1558 All edits/amendments must be made on the electronic document DICTATION DATE: 01/27/191557 ROLLER REPAIRER: LEI 01/27/191557 RPT#: [id number] DC DATE:01/27/19 STATUS: DIS IN [facility] [address] [place] [address] END OF REPORT
== END 2019-01-27 03:17 | DRG 918 ==
LOC: D.ER 14:54 → D.ICU 15:38
PROVIDERS: Family Medicine; ADMIT Family Medicine; ATTEND Family Medicine
DX: T42.4X2A Poisoning by benzodiazepines, intentional self-harm, initial encounter (principal); F33.2 Major depressive disorder, recurrent severe without psychotic features; F10.10 Alcohol abuse, uncomplicated; M25.562 Pain in left knee; W10.9XXA Fall (on) (from) unspecified stairs and steps, initial encounter

== ENCOUNTER → 2019-03-07 11:23 | Outpatient (CLI) | payer MEDICAID ==
[2019-01-24 17:37] VITALS: BMI 18.6
[~2019-03-07 11:23] MED LIST changes: +CYMBALTA60 MG PO; +NEURONTIN800 MG PO; +REMERON15 MG PO
== END | disposition home or self-care (01) ==
LOC: D.MRI 11:23
PROVIDERS: ATTEND Orthopaedic Surgery
DX: S83.232A Complex tear of medial meniscus, current injury, left knee, initial encounter (principal)